=== PATIENT | female | born 1960 ===

== ENCOUNTER 2017-06-23 09:18 | Emergency (ER) | payer OTHER ==
[2017-06-23 09:19] VITALS: BMI 23.9
[2017-06-23 09:31] VITALS: O2SAT 97
--- NOTE | 2017-06-23 10:34 | C.PDOC ---
History Of Present Illness 56 year old female with a past medical history of hypothyroidism presents to the ER complaining of feeling weak associated with bodyaches, cough and runny nose, onset . Also reports fever and chills which have been on and off. Patient notes she is concerned about possible exposure to carbon monoxide as she lives in an old house and noticed fumes in the home this morning, prompting her to come in for evaluation. Time Seen by Provider: 06/23/17 09:35 Chief Complaint (Nursing): Medical Clearance History Per: Patient History/Exam Limitations: no limitations Onset/Duration Of Symptoms: Days (x7) Current Symptoms Are (Timing): Still Present Past Medical History Reviewed: Historical Data, Nursing Documentation, Vital Signs Vital Signs: Last Vital Signs Temp 97.6 F 06/23/17 09:25 Pulse 103 H 06/23/17 09:25 Resp 16 06/23/17 09:25 BP 129/93 H 06/23/17 09:25 Pulse Ox 97 06/23/17 10:34 - Medical History PMH: Bronchitis, Hypothyroidism Denies: Chronic Kidney Disease - [facility] Procedures D & C NEC (01/16/14) HYSTEROSCOPY (01/16/14) UTERINE LES DESTRUCT NEC (01/16/14) Family History: States: No Known Family Hx - Social History Hx Alcohol Use: No Hx Substance Use: No Review Of Systems Except As Marked, All Systems Reviewed And Found Negative. Constitutional: Positive for: Fever, Chills, Weakness (generalized), Other ( bodyaches) ENT: Positive for: Nose Congestion Cardiovascular: Negative for: Chest Pain Respiratory: Positive for: Cough. Negative for: Shortness of Breath Gastrointestinal: Negative for: Nausea, Vomiting Physical Exam - Physical Exam Appears: Non-toxic, No Acute Distress Skin: Normal Color, Warm, Dry Head: Atraumatic, Normacephalic Eye(s): bilateral: Normal Inspection, PERRL, EOMI Nose: Normal Oral Mucosa: Moist Neck: Normal ROM, Supple Chest: Symmetrical Cardiovascular: Rhythm Regular Respiratory: Normal Breath Sounds, No Rales, No Rhonchi, No Wheezing, Other ( respirations are non-labored) Gastrointestinal/Abdominal: Normal Exam, Soft, No Tenderness Extremity: Bilateral: Atraumatic, Normal Color And Temperature, Normal ROM Neurological/Psych: Oriented x3, Normal Speech, No Other (focal deficits) Gait: Steady ED Course And Treatment O2 Sat by Pulse Oximetry: 97 (RA) Pulse Ox Interpretation: Normal Medical Decision Making Medical Decision Making: CO level taken upon arrival to ED, and is normal. Time: 9:36 Initial Plan: * Flu swab * Motrin 600 mg PO * Tylenol 975 mg PO LABS REVIEWED: (+) FLU A Disposition Counseled Patient/Family Regarding: Studies Performed, Diagnosis, Need For Followup, Rx Given - Disposition Referrals: [facility] [Outside] Disposition: HOME/ ROUTINE Disposition Time: 10:32 Condition: STABLE Prescriptions: Ibuprofen [Motrin] 600 mg PO TID #15 tab Oseltamivir [Tamiflu] 1 cap PO BID #10 cap Instructions: Flu, Adult (DC) Forms: Gen Discharge Inst Barbadian, [facility] (Barbadian) - POA Present On Arrival: None - Clinical Impression Clinical Impression: Influenza - Scribe Statement The provider has reviewed the documentation as recorded by the Nicolasa Heredia Provider Attestation: All medical record entries made by the Patriziaibmarina were at my direction and personally dictated by me. I have reviewed the chart and agree that the record accurately reflects my personal performance of the history, physical exam, medical decision making, and the department course for this patient. I have also personally directed, reviewed, and agree with the discharge instructions and disposition.
[2017-06-23 10:43] VITALS: BP 152/104; PULSE 102; RESP 20; TEMP 98.5
== END 2017-06-23 10:47 | disposition home or self-care (01) ==
LOC: C.ER 09:18
DX: J11.1 Influenza due to unidentified influenza virus with other respiratory manifestations (principal); E03.9 Hypothyroidism, unspecified